=== PATIENT | female | born 1990 | race Caucasian/White ===

== ENCOUNTER 2019-10-07 09:23 | Day surgery (SDC) | payer OTHER ==
--- OUTSIDE RECORDS SUMMARY | 2019-10-07 09:28 | XMS REPORT | Continuity of Care Document ---
:1990 Author Organization [facility] Address [address] [place] [address] Dr. Fischer [address] [place] [id number] Care Team Providers Name Role Phone Unavailable Unavailable Unavailable Problems This patient has no known problems. Allergies, Adverse Reactions, Alerts This patient has no known allergies or adverse reactions. Medications This patient has no known medications. Procedures This patient has no known procedures. Results This patient has no known results.
[2019-10-07] MEDS ORDERED: LIDOCAINE 2% MPF 5 ML VIAL ONE (09:39)
[2019-10-07] MEDS ORDERED: FENTANYL CITR 100 MCG/2 ML ONE (09:39)
[2019-10-07] MEDS ORDERED: propofoL 200 MG/20 ML VIAL IV ONE (09:39)
[2019-10-07] MEDS ORDERED: dexAMETHasone 10 MG/ML VIAL ONE (09:39)
[2019-10-07] MEDS ORDERED: ROCURONIUM 50 MG/5 ML VIAL IV ONE (09:39)
[2019-10-07] MEDS ORDERED: MIDAZOLAM HCL 2 MG/2 ML INJ ONE (09:40)
[2019-10-07] MEDS ORDERED: ONDANSETRON 4 MG/2 ML VIAL ONE (09:40)
[2019-10-07] MEDS: CEFOXITIN/SWI 1gm 1 GM/10 ML SYR ONE ×2 (09:54→10:30)
[2019-10-07] MEDS: Ringers Lactate 1,000 ML IV ONE ×2 (09:54→10:01)
[2019-10-07 10:00] LABS: Specific Gravity 1.025 (1.005-1.030)
[2019-10-07 10:12] LABS: Basophils % 0.4 % (0-1.3); Hematocrit 40.3 % (36.0-45.0); Lymphocytes % 9.5 % (15.3-44.8); MPV 8.7 fL (7.6-11.3); RBC Red Blood Cell Count 4.58 M/uL (3.86-4.86)
[2019-10-07] MEDS ORDERED: Ringers Lactate 1,000 ML IV ONE (11:09)
[2019-10-07] MEDS ORDERED: KETOROLAC 30 MG/ML INJ ONE (11:23)
[2019-10-07] MEDS ORDERED: MORPHINE 10 MG/ML VIAL ONE (11:28)
[2019-10-07] MEDS ORDERED: Mastisol Adhesive Liq ONE (11:32)
[2019-10-07 11:46] VITALS: O2SAT 100
[2019-10-07] MEDS ORDERED: HYDROCODONE/APAP 7.5/325 MG TAB ONE (13:03)
[2019-10-07 13:05] VITALS: TEMP 97.1
[2019-10-07 14:27] VITALS: BP 136/88
--- NOTE | 2019-10-07 20:48 | OP ---
Date of Procedure: 10/07/2019 Surgeon: Alen Castro MD Librarian Head: YANNI Mcclelland. Preoperative Diagnoses: Acute cholecystitis and cholelithiasis. Postoperative Diagnoses: Acute cholecystitis and cholelithiasis. Procedure: Laparoscopic cholecystectomy. Estimated Blood Loss: Minimal. Specimen: Gallbladder. Findings: As above. Anesthesia: General. Complications: None. Disposition: The patient tolerated the procedure in stable condition, taken to Recovery in good gene ral condition. Description Of Procedure: The patient was brought to the OR and placed in supine position. General anesthesia begun. The patient was prepped and draped in usual sterile fashion. Marcaine 0.5% was in filtrated locally. A 15 blade was used to make a 1 cm infraumbilical midline incision. Subcutaneous tissue was divided. Fascia was identified and divided. A #1 Vicryl stay suture was placed. Perito vickey cavity entered with sharp and blunt dissection. A 12 mm trocar was placed into the peritoneal c avity under direct vision. Pneumoperitoneum was established and three 5 mm trocars were placed, 1 in the epigastrium just to the right of midline and 2 in the right subcostal region. Laparoscopy revea led distended gallbladder, which was aspirated of hydrops, consistent with acute cholecystitis. Then , fundus was retracted superiorly. Infundibulum was identified and retracted inferolaterally. Cysti c duct and cystic artery were clearly identified with blunt dissection. Clips were placed. Both str uctures were divided. Cautery was used to remove the gallbladder from the liver bed. Bleeding on th e liver bed was controlled with cautery. Gallbladder was retrieved through the umbilicus via an Endo Catch bag. Right upper quadrant was irrigated. Effluent was clear. No evidence of bleeding or bile leakage appreciated. Subsequently, all trocars were removed under direct vision. Stay sutures were tied to each other across the fascial defect. Subcutaneous wounds were irrigated. Bleeding control led with cautery. 3-0 chromic used to approximate the subcutaneous tissue and close the skin. Steri le dressing was applied. The patient was awakened and taken to Recovery in good general condition. Discharge Note: The patient will go to Day Surgery and home when stable. Disposition: Home. Condition: Stable. Discharge Instructions: Resume home medications and diet. Activity as tolerated. No heavy lifting. Remove outer dressing in 2 days. Shower. Keep wound clean and dry. Keep Steri-Strips on at all t imes. Tylenol No. 3 one tablet p.o. q.4 p.r.n. pain. Follow up in my office in 1 week. Call for ap pointment. Keep Steri-Strips on at all times and incentive spirometer as ordered. CARMEN/BLAYNE Voice ID: [id number] Report ID: [id number]
== END 2019-10-07 13:40 | disposition home or self-care (01) ==
LOC: OR 09:23
PROVIDERS: ATTEND Surgery
PROC: 0FT44ZZ Resection of Gallbladder, Percutaneous Endoscopic Approach (ICD-10-PCS; principal; 2019-10-07 10:00)
DX: K80.00 Calculus of gallbladder with acute cholecystitis without obstruction (principal); Z11.59 Encounter for screening for other viral diseases; Z80.8 Family history of malignant neoplasm of other organs or systems
CPT/HCPCS: 85025; 36415; 81025; 88304; 47562; U0002; J2704; J2250; J3010; J1100; J7120 ×2; J2405